=== PATIENT | female | born 1945 | race Caucasian/White ===

== ENCOUNTER → 2016-08-19 | Outpatient (CLI) | payer MEDICARE, OTHER ==
[~2016-08-19] MED LIST: ASPIR-LOW81 MG PO; B-COMPLEX-VITA1 EACH PO; CALCIUM 500 MG1 EACH PO; CHROMIUM PICO400 MCG PO; CHROMIUM400 MCG PO; CO Q-10100 MG PO; COLACE100 MG PO; FAMOTIDINE20 MG PO; FISH OIL 1,0001 EAC7 PO; LIDOCAINE700 MG TD; LISINOPRIL5 MG PO; LOVENOX40 MG/0.4 SC; METAXALONE800 MG PO; MONTELUKAST SOD10 MG PO; MULTIVITAMIN1 EAC2 PO; OXYCODONE-APAP1 EACH PO; PANTOPRAZOLE SO20 MG PO; PANTOPRAZOLE SO40 MG PO; PERCOCET 5/31 TABLET PO; POLYETHYLENE GL17 GM PO; PRAVASTATIN SOD40 MG PO; QNASL8.7 GM BOTH NARES; SENNA-S TABLET1 EACH PO; SPIRONOLACTONE25 MG PO; SUCRALFATE1 GM PO; SYNTHROID125 MCG PO
== END | disposition home or self-care (01) ==
LOC: CDC 11:54
DX: I51.7 Cardiomegaly (principal); R94.31 Abnormal electrocardiogram [ECG] [EKG]; N20.0 Calculus of kidney; R31.0 Gross hematuria
CPT/HCPCS: 93000

== ENCOUNTER 2016-10-01 12:55 | Day surgery (SDC) | payer OTHER ==
[~2016-10-01] VITALS: Ht 167.6 cm; Wt 72.6 kg
[~2016-10-01 12:55] MED LIST changes: +CALCIUM 500 +1 EACH PO; +COZAAR50 MG PO; +ESTRACE42.5 GM VG; +MAGNESIUM250 MG PO; +PROTONIX20 MG PO; +SELENIUM100 MICROG PO
[2016-10-01 13:48] VITALS: BP 144/69
[2016-10-01 18:00] VITALS: BP 146/66
[2016-10-01 18:47] VITALS: BP 146/67
== END 2016-10-01 18:47 | disposition home or self-care (01) ==
LOC: SDC 12:55
PROVIDERS: Urology
DX: N20.1 Calculus of ureter (principal); N13.5 Crossing vessel and stricture of ureter without hydronephrosis; I10 Essential (primary) hypertension; E78.5 Hyperlipidemia, unspecified; K21.9 Gastro-esophageal reflux disease without esophagitis; J30.9 Allergic rhinitis, unspecified; Z87.891 Personal history of nicotine dependence; F10.10 Alcohol abuse, uncomplicated; Z79.82 Long term (current) use of aspirin
CPT/HCPCS: 74420; 82365 90; C1769; C1876; J0690; J1100; J1170; J1580; J2250; J2405